=== PATIENT | female | born 1990 | race Caucasian/White ===

== ENCOUNTER 2016-08-31 16:29 | Emergency (ER) | payer BC, OTHER ==
[~2016-08-31] VITALS: Ht 157.5 cm; Wt 66.0 kg
[2016-08-31 16:39] VITALS: Ht 157.5 cm; Wt 66.0 kg
[2016-08-31] MEDS ORDERED: IBUP400T22 PO (16:40)
[2016-08-31] MEDS ORDERED: HYDR-906 PO (16:40)
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
== END 2016-08-31 16:46 | disposition home or self-care (01) ==
LOC: EEVIPCON 16:29 → FTE 16:29 → E/R 16:46
DX: S29.9XXA Unspecified injury of thorax, initial encounter (principal); S39.92XA Unspecified injury of lower back, initial encounter; V89.2XXA Person injured in unspecified motor-vehicle accident, traffic, initial encounter
CPT/HCPCS: 99283

== ENCOUNTER 2017-04-17 13:17 | Emergency (ER) | END 2017-04-17 16:42 | disposition home or self-care (01) ==

== ENCOUNTER 2018-08-17 10:33 | Emergency (ER) | payer BC ==
[~2018-08-17] VITALS: Ht 160 cm; Wt 56.7 kg
[~2018-08-17 10:33] MED LIST: HYDR-4011 PO; IBUP-1541 PO; IBUP-1561 PO
[2018-08-17 10:36] VITALS: BP 127/86; PULSE 73; RESP 18; Ht 160 cm; Wt 56.7 kg
--- NOTE | 2018-08-17 11:14 | ERD ---
ER Documentation Chief Complaint Chief Complaint Rt knee pain x 3 months, worse today HPI Patient is a 28-year-old female, no past medical history, presents to the ER for concerns of right knee pain x3 months. Patient states the pain is worse today. Patient states pain is worse with positional changes. Patient is able to ambulate. Patient does not recall any falls or trauma. Patient denies any fevers or chills. Patient is sometimes the pain is behind her knee and radiates down her calf. Patient denies any recent travel, history of DVT/PE, palpable cords, warmth or redness to the affected extremity. Patient does have a Nexplanon. Patient denies chest pain or shortness of breath. ROS All systems reviewed and are negative except as per history of present illness. Medications Home Meds Active Scripts Ibuprofen* (Motrin*) 600 Mg Tab, 600 MG PO Q6, #30 TAB Prov:WES ESCAMILLA PA-C 08/17/18 Ibuprofen* (Motrin*) 400 Mg Tab, 400 MG PO Q8, #15 TAB Prov:JOEY BLANK MD 04/17/17 Ibuprofen* (Ibuprofen*) 400 Mg Tablet, 400 MG PO Q6H PRN for PAIN for 14 Days, TAB Prov:TRISTAN CUELLAR PA-C 08/31/16 Hydrocodone/Acetaminophen ([place] 5-325 Tablet) 1 Each Tablet, 1 EACH PO Q6 for 5 Days, TAB Prov:TRISTAN CUELLAR PA-C 08/31/16 PMhx/Soc Medical and Surgical Hx: pt denies Medical Hx, pt denies Surgical Hx History of Surgery: No Anesthesia Reaction: No Hx Neurological Disorder: No Hx Respiratory Disorders: No Hx Cardiac Disorders: No Hx Psychiatric Problems: No Hx Miscellaneous Medical Probl: No Hx Alcohol Use: No Hx Substance Use: No Hx Tobacco Use: No Smoking Status: Never smoker FmHx Family History: No diabetes Physical Exam Vitals Vital Signs Date Temp Pulse Resp B/P (MAP) Pulse Ox O2 O2 Flow FiO2 Time Delivery Rate 08/17/18 97.7 73 18 127/86 98 10:36 (100) Physical Exam GENERAL: Well-developed, well-nourished female. Appears in no acute distress. HEAD: Normocephalic, atraumatic. EYES: Pupils are equally reactive bilaterally. EOMs grossly intact. No conj unctival erythema. EXTREMITIES: Equal pulses bilaterally. No peripheral clubbing, cyanosis or edema. No unilateral leg swelling. NEUROLOGIC: Alert and oriented. Moving all four extremities without any difficulty. Normal speech. Steady gait. SKIN: Normal color. Warm and dry. No rashes or lesions. RLE: No deformity, erythema, ecchymosis or swelling. Skin is intact. Tender to palpation to the lateral knee. Tender to palpation to the popliteal region. No obvious cyst noted. Tender to palpation of the calf. Patient does report pain with dorsiflexion. No palpable cords, no warmth or erythema. Sensation intact to light touch. Neurovascularly intact. (Able to plantarflex, dorsiflex, aarti foot, invert foot, raise big toe.) 2+ DP and DT pulses. Procedures/MDM ED COURSE: The patient was stable throughout ED course. I kept the patient and/or family informed of laboratory and diagnostic imaging results throughout the ED course. DIAGNOSTIC IMAGING: Read by radiologist. Patient: TARA GARCIA I : 1990 Age: 28 Sex: F MR #: [id number] DOS: 08/17/18 1101 Ordering MD: WES ESCAMILLA PA-C Location: [facility] Room/Bed: PROCEDURE: US right lower extremity Venous. CLINICAL INDICATION: Right calf pain TECHNIQUE: Multiple sonographic images of the right lower extremity deep venous system was obtained utilizing grayscale, color-flow, compressive sonography and doppler imaging with augmentation. COMPARISON: None. FINDINGS: There is normal compressibility and flow within the right common femoral, deep femoral, superficial femoral, posterior tibial, peroneal and popliteal veins. IMPRESSION: No sonographic evidence for deep venous thrombosis of the right lower extremity. RPTAT:AAJJ Physician Yesy Date Time Electronically viewed and signed by Physician Yesy on 08/17/2018 12:14 BM/ CC: WES ESCAMILLA PA-C [id number] Patient: TARA GARCIA I : 1990 Age: 28 Sex: F MR #: [id number] DOS: 08/17/18 1101 Ordering MD: WES ESCAMILLA PA-C Location: [facility] Room/Bed: PROCEDURE: RIGHT knee x-ray CLINICAL INDICATION: Knee pain TECHNIQUE: AP, lateral and tunnel views of the knee were obtained. COMPARISON: None FINDINGS: There is normal mineralization. No acute fracture or dislocation is seen. There is no joint effusion. There are no significant degenerative changes. There is no significant soft tissue swelling. RPTAT: AA IMPRESSION: Normal x-ray of the right knee. .Evan Lynn MD, Date Time Electronically viewed and signed by .Evan Lynn MD, MD on 08/17/2018 11:29 .S/ CC: WES ESCAMILLA PA-C [id number] MEDICAL DECISION MAKING: This is a 28-year-old female presents the ER for concerns of right knee pain and calf pain x3 months. Vital signs were reviewed. Patient was afebrile. X-ray imaging was unremarkable. Ultrasound was negative for DVT. See formal report above. At this time, patient presentation is most consistent knee pain. Patient advised to follow-up with database management system specialist. Low suspicion for fracture, dislocation, septic joint, popliteal cyst, osteoarthritis, osteomyelitis, DVT or compartment syndrome. At this time, unable to rule out any meniscus and knee ligament injuries. PRESCRIPTIONS: Ibuprofen DISCHARGE: At this time, patient is stable for discharge and outpatient management. RICE therapy and ROM exercises were advised to avoid stiffness. I have instructed the patient to follow-up with his/her primary care physician in 1-2 days. I have discussed with the patient the possibility of needing to see an database management system specialist for further workup and imaging if the pain persists. I have instructed the patient to promptly return to the ER for any new or worsening symptoms including increased pain, swelling, redness, warmth or fever. The patient and/or family expressed understanding of and agreement with this plan. All questions were answered. Home care instructions were provided. Disclaimer: Inadvertent spelling and grammatical errors are likely due to EHR/di ctation software use and do not reflect on the overall quality of patient care. Also, please note that the electronic time recorded on this note does not necessarily reflect the actual time of the patient encounter. Departure Diagnosis: Primary Impression: Right knee pain Chronicity: acute Qualified Codes: M25.561 - Pain in right knee Additional Impression: Right calf pain Condition: Fair Patient Instructions: Knee Pain, Uncertain Cause Additional Instructions: Unable to rule out any ligament or tendon injuries. Follow-up with an database management system specialist on an outpatient basis. You may need an MRI. Call your primary care doctor TOMORROW for an appointment during the next 1-2 days.See the doctor sooner or return here if your condition worsens before your appointment time. WES ESCAMILLA PA-C Aug 17, 2018 11:14
[2018-08-17] MEDS ORDERED: IBUP-1542 PO (12:18)
== END 2018-08-17 12:26 | disposition home or self-care (01) ==
LOC: FTE 10:33
DX: M25.561 Pain in right knee (principal); M79.661 Pain in right lower leg
CPT/HCPCS: 73562; 93971